=== PATIENT | male | born 1940 | race Caucasian/White ===

== ENCOUNTER 2016-09-20 10:07 | Emergency (ER) | payer MEDICARE, OTHER, SELFPAY ==
[~2016-09-20] VITALS: Ht 167.6 cm; Wt 55.8 kg
[~2016-09-20 10:07] MED LIST: ASPI325T OR; ASPI32ECTA PO; AUGM875T27 PO; COLACE LIQUID PO; HYDROCODONE/ACETAMIN PO; IRON LIQUID PO; LEVO100T5 PO; LEVO25TABR OR; LOPR50TA OR; NICO14DI3 TD; NITR0.4S SL; NITR4TASL SL; PERCOCET PO; PRED20TA PO; TOPR50TA PO; TYLE325T5 PO
[2016-09-20] MEDS ORDERED: TOPR50TA PO (10:31)
[2016-09-20] MEDS ORDERED: HYDROmorphone HCL 1 MG/ML SYRINGE (J1170) IM ONE (11:00)
[2016-09-20] MEDS ORDERED: HYDR-3713 PO (12:14)
[2016-09-20 12:27] VITALS: BP 168/69
--- NOTE | 2016-09-20 12:58 | REP ---
CT study of the cervical spine without contrast: History: Trauma. Comparison study is from October 26, 2013. Technique: Helical scanning is acquired and overlapping 2 mm high resolution axial images were generated and reviewed at bone and soft tissue window settings. Coronal and sagittal multiplanar re-formations images are generated. CT findings: There is no evidence of cervical spine element fracture. No skull base fracture is seen. Cervical vertebral body heights are preserved. Alignment is normal. Facet joints are normally aligned bilaterally at each cervical level on multiplanar re-formations images. There is no evidence of intraspinal or paraspinal hematoma. There is are degenerative spondylosis changes in the cervical spine similar to the prior study. Facet hypertrophy is noted at multiple cervical levels bilaterally. This is most pronounced on the left at C2-3. There is some straightening of the normal cervical lordosis. Degenerative disc changes are most pronounced at C3-4, C5-6, and C6-7. There is uncovertebral spurring bilaterally at each of these three levels. Alignment and degenerative disc changes are unchanged compared with the October 26, 2013 prior study. Lung window settings demonstrate evidence of emphysematous change in the lung apices bilaterally. No extra vertebral abnormality is seen. Impression: Degenerative disc disease and osteoarthritic facet changes as previously visible on October 26, 2013 prior study , otherwise negative CT study of the cervical spine without contrast. No fracture seen. Signed by Elvis Schmitz MD 09/20/2016 01:25 P
--- NOTE | 2016-09-20 13:18 | REP ---
SACRUM AND COCCYX: 09/20/2016. Clinical history: The patient fell, states tail bone trauma. Pain. No prior pertinent study available. Inlet and outlet views of the pelvis to evaluate the sacrum with lateral view of the sacrum and coccyx also reviewed. There are pedicle screws and arch bars from L4-S1 with posterior fusion and hardware intact. Laminectomy at the L5 level. The sacral ala show symmetric foramina. The SI joints appear grossly symmetric and normal. I do not see a visible sacral fracture on the two angled AP views. There are minor degenerative changes with narrowing of the hip joint space on the right compared to left. Some facet arthropathy lower lumbar spine and degenerative disc changes at L3-4. Lateral view shows no visible or displaced fracture of the sacrum or coccyx. There are surgical clips overlying the left sacrum in the pelvis. There are heavy vascular calcifications in the iliac vessels left greater than right. There is no widening of the presacral space adjacent the rectum. Impression: 1. No visible or displaced fracture of the sacrum or coccyx. 2. Sacral ala and foramina are symmetric and grossly intact. SI joints also symmetric with some degenerative change. 3. No visible sacral fracture. Signed by Lam Madrigal MD 09/20/2016 03:03 P
== END 2016-09-20 12:29 | disposition home or self-care (01) ==
LOC: M ED 11:41
DX: S30.0XXA Contusion of lower back and pelvis, initial encounter (principal); S16.1XXA Strain of muscle, fascia and tendon at neck level, initial encounter; W01.0XXA Fall on same level from slipping, tripping and stumbling without subsequent striking against object, initial encounter; Y92.512 Supermarket, store or market as the place of occurrence of the external cause; Y93.89 Activity, other specified; Y99.8 Other external cause status; I10 Essential (primary) hypertension; E78.00 Pure hypercholesterolemia, unspecified; E03.9 Hypothyroidism, unspecified; F43.10 Post-traumatic stress disorder, unspecified; F33.9 Major depressive disorder, recurrent, unspecified; Z86.73 Personal history of transient ischemic attack (TIA), and cerebral infarction without residual deficits; Z85.818 Personal history of malignant neoplasm of other sites of lip, oral cavity, and pharynx; Z85.828 Personal history of other malignant neoplasm of skin; Z93.0 Tracheostomy status; Z79.899 Other long term (current) drug therapy; Z79.82 Long term (current) use of aspirin; Z88.8 Allergy status to other drugs, medicaments and biological substances
CPT/HCPCS: 72125; 72220; 96372; 99282; J1170

== ENCOUNTER → 2017-01-23 | Outpatient (CLI) | payer OTHER, SELFPAY ==
[~2017-01-23] MED LIST changes: +ASPI325T24 PO; -ASPI32ECTA PO; -AUGM875T27 PO; +AUGM875T28 PO; +HYDR-3713 PO
--- NOTE | 2017-01-23 17:39 | REP ---
PA and lateral chest: Comparison is 02/03/2014. Lung swartz are hyperinflated, as previously compatible with COPD but requiring clinical confirmation. There is diffuse mild interstitial coarsening, not significantly change taking into consideration differences in radiographic penetration. The previous tracheostomy has been removed. There is no pneumothorax. There are no focal infiltrates or effusions. No masses. The central pulmonary arteries are enlarged compatible with pulmonary hypertension. Cardiac size is normal. The mediastinum and bony thorax are unremarkable. Impression: There are no focal infiltrates or effusions. There is chronic hyperinflation and chronic interstitial coarsening, not significantly change taking into consideration differences in radiographic penetration. The central pulmonary is enlarged compatible with pulmonary hypertension. Signed by Damian Valentino MD 01/23/2017 05:30 P
[2017-01-23 19:25] LABS: BASO % 0.5 % (0.0-1.0); EOS # 0.1 K/mm3 (0.0-0.50); EOS % 2.5 % (0.0-3.0); LARGE UNSTAINED CELL # 0.1 K/mm3 (0.0-0.4); LARGE UNSTAINED CELL % 1.8 % (0.0-4.0); LYMPH # 0.6 K/mm3 (1.5-4.5); LYMPH % 10.1 % (24.0-44.0); MEAN CORPUSCULAR HEMOGLOBIN 30.6 pg (27.0-33.0); MEAN CORPUSCULAR HGB CONC 34.7 g/dl (32.0-36.5); MONO # 0.5 K/mm3 (0.0-0.8); MONO % 10.9 % (0.0-5.0); NEUTROPHILS # 3.5 K/mm3 (1.8-7.7); NEUTROPHILS % 74.3 % (36.0-66.0); PLATELET COUNT, AUTOMATED 307 k/mm3 (150-450); RED CELL DISTRIBUTION WIDTH 13.7 % (11.5-14.5); WHITE BLOOD COUNT 4.8 K/mm3 (4.0-10.0)
[2017-01-23 19:27] LABS: ANION GAP 9 MEQ/L (8-16); BLOOD UREA NITROGEN 7 MG/DL (7-18); CALCIUM LEVEL 8.3 MG/DL (8.8-10.2); CARBON DIOXIDE LEVEL 25 MEQ/L (21-32); CHLORIDE LEVEL 89 MEQ/L (98-107); CREATININE FOR GFR 0.57 MG/DL (0.70-1.30); FREE T4 1.48 NG/DL (0.76-1.46); GLOMERULAR FILTRATION RATE > 60.0 (>42); GLUCOSE, FASTING 93 MG/DL (83-110); SODIUM LEVEL 123 MEQ/L (136-145)
== END ==
LOC: M WUC 16:50
PROVIDERS: ATTEND Physician Assistant
DX: R06.02 Shortness of breath (principal); Z79.899 Other long term (current) drug therapy